=== PATIENT | male | born 1955 | race Caucasian/White ===

== ENCOUNTER 2016-09-30 14:38 | Emergency (ER) | payer BC ==
[2016-09-30 14:50] VITALS: BP 159/74
--- NOTE | 2016-09-30 16:16 | ERNOTE ---
ENT HPI Date of Service: 09/30/16 Presenting Symptoms: dental pain Time Seen by Provider: 09/30/16 16:06 Source: patient, RN notes reviewed Exam Limitations: no limitations - Immun/Allergies/Home Medications Immunizations: IMMUNIZATION HX Immunizations Up to Date No History of Influenza Vaccine No Hx Pneumococcal Vaccination No Allergies/Adverse Reactions: Allergies Allergy/AdvReac Type Severity Reaction Status Date / Time No Known Allergies Allergy Unverified 09/30/16 14:46 Home Medications: HOME MEDICATIONS Penicillin V Potassium [Pen-Vee K] 500 mg PO Q8H #30 tab 09/30/16 [Last Taken Unknown] - History of Present Illness Narrative: 61 y/o male ambulatory to the ED for dental pain that began about a week ago. He noticed over the weekend that his face was starting to swell. His dentist instructed him to come here to get an antibiotic. ENT Location: Present: dental Prearrival Treatment: Present: over the counter meds Associated Symptoms - ENT: Reports: facial pain/swelling, tooth pain, jaw swelling. Denies: fever, malaise, poor fluid intake, poor solid intake, cough, sore throat, nasal congestion/drainage, change in hearing, ear drainage, headache Prior Treament: Reports: similar symptoms before. Denies: recently seen Review of Systems - Review of Systems Constitutional: Present: See HPI EYE: Present: no symptoms reported ENT: Present: See HPI Respiratory: Present: See HPI Cardiology: Present: no symptoms reported Gastrointestinal/Abdominal: Absent: nausea, vomiting Genitourinary: Present: no symptoms reported Musculoskeletal: Absent: muscle pain, neck pain Skin: Absent: rash, lesions, change in color Neurological: Present: See HPI Endocrine: Present: no symptoms reported Hematologic/Lymphatic: Present: no symptoms reported Psych: Present: no symptoms reported - Patient's Past Medical History Patient History - Medical: No pertinent hx Patient History - Cardiac/Respiratory: No pertinent hx Patient History - Cancer: No Hx of Cancer Patient History - Surgical Procedures: No surgical history Patient History - Other: None - Social History Living Situations: home Abuse History: No History of abuse Psych History: No pertinent hx Smoking Status: Current every day smoker Cigarettes Packs Per Day: 1 Have you smoked in the past 12 months: Yes Alcohol Use: occasionally - Immunizations Immunizations Up to Date: No Hx Pneumococcal Vaccination: No History of Influenza Vaccine: No Physical Exam - Physical Exam General Appearance: Present: wd/wn, alert, no apparent distress Eye Exam: Normal inspection: bilateral Ears, Nose, Throat: Present: normal except - - erythema/edema to gums surrounding left upper molar with mild facial swelling Neck: Present: normal inspection, supple, lymphadenopathy (L). Absent: lymphadenopathy (R) Respiratory: Present: no respiratory distress, normal breath sounds, no accessory muscle use, lungs clear Cardiovascular/Chest: Present: regular rate, rhythm, no murmur Neurological Exam: Present: alert, oriented, normal mood/affect Skin Exam: Present: normal color, warm/dry ED Progress - Vital Signs Patient's Vital Signs:: I have reviewed the patient's vital signs. Vital Signs: Vital Signs 09/30/16 14:46 Temperature 37.3 C Pulse Rate 81 Respiratory 14 Rate Blood Pressure 159/74 O2 Sat by Pulse 100 Oximetry - Progress/Reassessment Chief Complaint: Dental Problem Progress:: Unchanged Departure Clinical Impression: Dental abscess - Departure Disposition: Home Follow Up Needed Condition: Stable Instructions: Dental Abscess, [id number] Additional Instructions: See your dentist as scheduled Referrals: Salvatore Yap MD [Primary Care Provider] - Prescriptions: Penicillin V Potassium [Pen-Vee K] 500 mg PO Q8H #30 tab
== END 2016-09-30 16:19 | disposition home or self-care (01) ==
LOC: ER 14:38
DX: K04.7 Periapical abscess without sinus (principal); Z72.0 Tobacco use

== ENCOUNTER 2020-07-25 12:25 | Inpatient (IN) ==
[~2020-07-25 12:25] MED LIST: TRANEXAMIC ACID 1,000 MG in NORMAL SALINE 100 ML IV PRN; ceFAZolin SODIUM 1 GM VIAL IV PRN
[2020-07-25] MEDS ORDERED: MIDAZOLAM HCL/PF 5 MG/ML VIAL ONE (14:03)
[2020-07-25] MEDS ORDERED: PROPOFOL VIAL IV ONE (14:03)
[2020-07-25] MEDS ORDERED: LIDOCAINE HCL 20 ML VIAL ONE (14:03)
[2020-07-25] MEDS: RINGER'S SOLUTION,LACTATED 1,000 ML IV PRN ×2 (14:21→18:12)
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
[2020-07-25] MEDS ORDERED: BUPIVACAINE HCL 50 ML VIAL IJ ONE ×2 (15:03→15:45)
[2020-07-25] MEDS ORDERED: ceFAZolin SODIUM 1 GM VIAL ONE (15:04)
[2020-07-25] MEDS ORDERED: ZOLPIDEM TARTRATE 5 MG TABLET PO PRN (16:50)
[2020-07-25] MEDS ORDERED: ONDANSETRON HCL/PF 2 MG/ML VIAL IV PRN (16:50)
[2020-07-25] MEDS ORDERED: diphenhydrAMINE HCL 50 MG/ML VIAL IV PRN (16:50)
[2020-07-25] MEDS ORDERED: MAGNESIUM HYDROXIDE 30 ML UDC PO PRN (16:50)
[2020-07-25] MEDS ORDERED: MAG HYDROX/ALUMINUM HYD/SIMETH 30 ML UDC PO PRN (16:50)
--- NOTE | 2020-07-25 16:57 | ANES ---
Post Anesthesia Discharge - Transfer of Care Transfer of Care handoff given to nurse: Yes - Discharge from PACU Discharge from PACU when meets criteria: Yes - Awake in PACU.
--- NOTE | 2020-07-25 17:01 | OR ---
Operative Report - Dictated Report Narrative: Date: 07/25/2020 Surgeon: Alo Gore M.D. Tank Calibrator: Brent Sen PA-C (provided an essential set of skilled, educated hands that assisted with transfer, positioning, prepping, draping, manipulation, retraction, irrigation, placement of implants, closure of wounds, and application of splints and dressing all of which cannot be performed by the available surgical crew) Anesthesia: General plus local nerve injections Preoperative diagnosis: Chronic wound right lower extremity with osteomyelitis status post paralysis Postoperative diagnosis: Chronic wound right lower extremity with osteomyelitis status post paralysis Procedure: Right below the knee potation Estimated blood loss: 50 mL Tourniquet time: 26 minutes at 250 millimeters mercury Retained implants: None Drains: Medium Hemovac double loaded Specimens: Leg pathology Complications: None Indications: Mr. Puri is a 65-year-old gentleman who had an injury resulting in paralysis. He was placed in a rigid lower extremity brace which resulted in pressure over his leg and he developed a secondary wound that went on to osteomyelitis and did not heal with wound care. It was not amendable to soft tissue coverage and thus the option for amputation was discussed. He elected to proceed. Risks and recovery were discussed in the clinic including the risk of wound complications, persistent pain, blood loss, nerve, tendon, blood vessel injury and pain, need for additional procedures, persistent pain, and . Procedure: After a timeout, antibiotics consisting of Ancef was administered. A beanbag was utilized in order bump the operative leg and a well-padded tourniquet was applied to the operative thigh. The leg was then prepped and draped in a standard sterile fashion. There was a noted draining malodorous purulent longitudinal wound involving the distal one half of the fibula as well as the foot and heel. After inflating the tourniquet to 2 and 50 mmHg, a standard posterior flap below the knee potation was performed with a planned 10 cm below the tibial tubercle tibial cut. Sharp dissection was carried throughout the muscle and the posterior flap and the bone was transected approximately 10 cm distal to the tibial tubercle beveled and rasped to smooth edges. The fibula was cut proximal to this on an oblique manner. All nerves and vessels were identified and the vessels were tied off separately and the nerves were injected with 0.5% Marcaine without epinephrine and transected in order to resect into the muscle. A posterior and lateral flap were fashioned. Tourniquet was deflated and hemostasis was obtained ensuring that we had adequately stopped active bleeding. A drain was placed deep and superficial double loaded. The deep flap was myodesed to the distal tibia and the fascia was closed to the anterior tibial periosteum and subcutaneous tissues. This resulted in a well- padded stump. The subcutaneous tissue was closed with interrupted 3-0 Vicryl, the skin with 3-0 nylon and eliceo. Xeroform 4 x 4s, fluffs Norman, Sof-Rol, and an Lars wrap was applied. All sponge, needle, instrument counts were correct prior to closing wounds. Patient was then awoken and transferred to postanesthesia care in stable condition. All sponge, sharp, and instrument counts were correct prior to closing the wounds.
--- NOTE | 2020-07-25 17:14 | ANES ---
Post Anesthesia Assessment - Vital Signs Vitals: Last Vital Signs Temp 36.4 C 07/25/20 17:10 Pulse 80 07/25/20 17:10 Resp 12 07/25/20 17:10 BP 114/70 07/25/20 17:10 Pulse Ox 100 07/25/20 17:10 Airway Patency: Normal - Mental Status Level Of Consciousness: Awake, Alert, Appropriate - Pain Level Pain Score: 7 - Represents chronic pain, shoulders. - N/V Assessment Nausea/Vomiting Presence: None Dehydration:: No
[2020-07-25] MEDS: oxyCODONE HCL/ACETAMINOPHEN 1 TAB TABLET PO PRN ×2 (17:30→21:47)
[2020-07-25] MEDS: ceFAZolin SODIUM 1 GM in DEXTROSE 5 % IN WATER 100 ML IV SCH ×2 (19:13)
[2020-07-25] MEDS: ACETAMINOPHEN 500 MG TABLET PO PRN (21:48)
[2020-07-26] MEDS: SENNOSIDES/DOCUSATE SODIUM 1 TAB TABLET PO SCH ×2 (01:04→20:47)
[2020-07-26] MEDS: ceFAZolin SODIUM 1 GM in DEXTROSE 5 % IN WATER 100 ML IV SCH ×4 (01:07→08:18)
[2020-07-26] MEDS: oxyCODONE HCL/ACETAMINOPHEN 1 TAB TABLET PO PRN (04:33)
[2020-07-26] MEDS: ACETAMINOPHEN 500 MG TABLET PO PRN (04:34)
[2020-07-26] MEDS: MORPHINE SULFATE 2 MG/ML DISP.SYRIN IV PRN ×2 (05:58→06:39)
[2020-07-26 06:21] LABS: Hematocrit 29.1 % (42.0-52.0); Hemoglobin 9.4 gm/dL (13.5-18.0); Mean Corpuscular Hgb Conc 32.3 g/dl (32-36); Platelet Count 221 K/mm3 (150-450); Red Blood Count 3.13 M/mm3 (4.7-6.0); Red Cell Distribution Width 13.2 % (11.5-14.0); White Blood Count 7.1 K/mm3 (4.0-10.5)
[2020-07-26 06:29] LABS: Anion Gap 8.7 mmol/L (6.8-13.8); BUN/Creatinine Ratio 20.8 (9.0-21.6); Carbon Dioxide 30.5 mmol/L (24-32.6); Estimated Creat Clear 114.2; Potassium 4.2 mmol/L (3.4-4.6)
[2020-07-26] MEDS ORDERED: oxyCODONE HCL/ACETAMINOPHEN 1 TAB TABLET PO PRN (06:46)
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
[2020-07-26] MEDS: PANTOPRAZOLE SODIUM 40 MG TABLET.EC PO SCH (08:20)
[2020-07-26] MEDS: GABAPENTIN 100 MG CAPSULE PO SCH ×3 (08:20→18:58)
[2020-07-26] MEDS: BACLOFEN 10 MG TABLET PO SCH ×3 (08:20→18:58)
[2020-07-26] MEDS: FERROUS SULFATE 325 MG TABLET PO SCH ×2 (08:21→17:26)
[2020-07-26] MEDS: FOLIC ACID 1 MG TABLET PO SCH (08:21)
[2020-07-26] MEDS: CALCIUM CARBONATE 500 MG TAB.CHEW PO SCH (08:21)
[2020-07-26] MEDS: MULTIVITAMINS 1 CAP CAPSULE PO SCH (08:21)
[2020-07-26] MEDS: CYANOCOBALAMIN 1,000 MCG TABLET PO SCH (08:22)
[2020-07-26] MEDS: THIAMINE HCL 100 MG TABLET PO SCH (08:22)
[2020-07-26] MEDS: CHOLECALCIFEROL 5,000 UNIT TABLET PO SCH (08:22)
[2020-07-26] MEDS: traMADol HCL 50 MG TABLET PO SCH ×3 (08:30→19:01)
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
[2020-07-26] MEDS: MICONAZOLE NITRATE 150 APPL TUBE TP SCH (14:55)
[2020-07-26] MEDS: COLLAGENASE CLOSTRIDIUM HIST. 30 APPL TUBE TP SCH (14:55)
--- NOTE | 2020-07-26 17:44 | PN ---
Subjective - Date and Time Seen Date: 07/26/20 Time: 07:45 Subjective Narrative: Subjective: Reports no appreciable pain in his right leg. He was having some back and sacral pain from positioning. He denies any significant complaints with regards to his right leg Physical exam: Alert and oriented to person, place and time Right lower extremity: Dressings intact to the right leg, drains in place, minimal pain with knee range of motion Assessment: Postop day 1 status post right below the knee amputation. Plan: He will continue with his compressive dressings. Avoid pressure on the end of his wounds. We will assess for removal of drains. A stump plant changer was ordered and a PRAFO boot would be recommended for his left leg to avoid any additional pressure on his heel. Continue his 24 hours worth of antibiotics. Objective - Vitals Vitals: Last Vital Signs Temp 37.1 C 07/26/20 14:10 Pulse 97 07/26/20 14:10 Resp 16 07/26/20 14:10 BP 91/36 07/26/20 14:10 Pulse Ox 99 07/26/20 14:10 - Abnormal Lab Findings Abnormal Lab Findings: Abnormal Lab Results 07/26/20 07/26/20 Range/Units 06:10 06:10 RBC 3.13 L (4.7-6.0) M/mm3 Hgb 9.4 L (13.5-18.0) gm/dL Hct 29.1 L (42.0-52.0) % Random Glucose 112 H (70-110) mg/dL Assessment/Plan - Problems/Diagnosis (1) S/P BKA (below knee amputation) Problem: Acute Qualifiers: Laterality: right Qualified Code(s): Z89.511 - Acquired absence of right leg below knee
[2020-07-27] MEDS: GABAPENTIN 100 MG CAPSULE PO SCH ×4 (00:53→18:55)
[2020-07-27] MEDS: traMADol HCL 50 MG TABLET PO SCH ×4 (00:53→18:55)
[2020-07-27] MEDS: BACLOFEN 10 MG TABLET PO SCH ×4 (00:54→18:55)
[2020-07-27] MEDS ORDERED: ACETAMINOPHEN 325 MG TABLET PO PRN (01:28)
[2020-07-27 06:15] LABS: Hematocrit 28.5 % (42.0-52.0); Mean Cell Volume 94.4 fl (78-100); Mean Corpuscular Hemoglobin 29.8 pg (27-31); Mean Corpuscular Hgb Conc 31.6 g/dl (32-36); Mean Platelet Volume 9.5 fl (8-11.3); Platelet Count 219 K/mm3 (150-450); Red Blood Count 3.02 M/mm3 (4.7-6.0); Red Cell Distribution Width 13.4 % (11.5-14.0); White Blood Count 7.5 K/mm3 (4.0-10.5)
[2020-07-27 06:32] LABS: Anion Gap 8.8 mmol/L (6.8-13.8); BUN/Creatinine Ratio 22.4 (9.0-21.6); Calcium * 8.8 mg/dL (7.9-10.9); Estimated Creat Clear 151.6; Potassium 3.8 mmol/L (3.4-4.6)
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
[2020-07-27] MEDS ORDERED: NORMAL SALINE 1,000 ML IV ONE (06:48)
[2020-07-27] MEDS: PANTOPRAZOLE SODIUM 40 MG TABLET.EC PO SCH (07:08)
[2020-07-27] MEDS: FERROUS SULFATE 325 MG TABLET PO SCH ×2 (08:55→16:06)
[2020-07-27] MEDS: MICONAZOLE NITRATE 150 APPL TUBE TP SCH (08:56)
[2020-07-27] MEDS: FOLIC ACID 1 MG TABLET PO SCH (08:56)
[2020-07-27] MEDS: MULTIVITAMINS 1 CAP CAPSULE PO SCH (08:56)
[2020-07-27] MEDS: CHOLECALCIFEROL 5,000 UNIT TABLET PO SCH (08:57)
[2020-07-27] MEDS: THIAMINE HCL 100 MG TABLET PO SCH (08:57)
[2020-07-27] MEDS: CALCIUM CARBONATE 500 MG TAB.CHEW PO SCH (08:57)
[2020-07-27] MEDS ORDERED: COLLAGENASE CLOSTRIDIUM HIST. 30 APPL TUBE TP SCH (09:00)
[2020-07-27] MEDS: CYANOCOBALAMIN 1,000 MCG TABLET PO SCH (09:01)
[2020-07-27] MEDS: COLLAGENASE CLOSTRIDIUM HIST. 30 APPL TUBE TP SCH (09:01)
--- NOTE | 2020-07-27 15:29 | PN ---
Subjective - Date and Time Seen Date: 07/27/20 Time: 15:27 Subjective Narrative: Subjective: Reports no appreciable pain in his right leg. He denies any significant complaints with regards to his right leg Physical exam: Alert and oriented to person, place and time Right lower extremity: Dressings intact, removed, incision without any acute signs of complication, gauze and stump forest fire control officer applied Assessment: Postop day 2 status post right below the knee amputation. Plan: He will continue with his compressive dressings. Avoid pressure on the end of his wounds. Drains removed today. A stump forest fire control officer was placed and a PRAFO boot would be recommended for his left leg to avoid any additional pressure on his heel. Okay for transfer to nursing facility when medically stable and follow-up in approximately 10 to 14 days with orthopedics. Keep the wound dry. Utilize the compression stocking. Change dressings with dry gauze and stocking as needed and if no drainage this can be kept in place for multiple days. Objective - Vitals Vitals: Last Vital Signs Temp 36.8 C 07/27/20 14:45 Pulse 94 07/27/20 14:45 Resp 16 07/27/20 14:45 BP 104/54 07/27/20 14:45 Pulse Ox 100 07/27/20 14:45 - Abnormal Lab Findings Abnormal Lab Findings: Abnormal Lab Results 07/27/20 07/27/20 Range/Units 06:02 06:02 RBC 3.02 L (4.7-6.0) M/mm3 Hgb 9.0 L (13.5-18.0) gm/dL Hct 28.5 L (42.0-52.0) % MCHC 31.6 L (32-36) g/dl Est GFR (Non-Af Amer) 150 H D (60-130) mL/min BUN/Creatinine Ratio 22.4 H (9.0-21.6) Assessment/Plan - Problems/Diagnosis (1) S/P BKA (below knee amputation) Problem: Acute Qualifiers: Laterality: right Qualified Code(s): Z89.511 - Acquired absence of right leg below knee
[2020-07-27] MEDS: SENNOSIDES/DOCUSATE SODIUM 1 TAB TABLET PO SCH (20:16)
[2020-07-28] MEDS: GABAPENTIN 100 MG CAPSULE PO SCH ×4 (01:02→18:39)
[2020-07-28] MEDS: traMADol HCL 50 MG TABLET PO SCH ×4 (01:02→18:41)
[2020-07-28] MEDS: BACLOFEN 10 MG TABLET PO SCH ×4 (01:03→18:39)
[2020-07-28 06:26] LABS: Hematocrit 28.1 % (42.0-52.0); Mean Cell Volume 94.9 fl (78-100); Mean Corpuscular Hemoglobin 30.4 pg (27-31); Mean Platelet Volume 8.8 fl (8-11.3); Platelet Count 203 K/mm3 (150-450); Red Blood Count 2.96 M/mm3 (4.7-6.0); Red Cell Distribution Width 13.3 % (11.5-14.0); White Blood Count 6.3 K/mm3 (4.0-10.5)
[2020-07-28 06:45] LABS: Anion Gap 7.5 mmol/L (6.8-13.8); BUN/Creatinine Ratio 16.7 (9.0-21.6); Carbon Dioxide 32.4 mmol/L (24-32.6); Estimated Creat Clear 183.2; Potassium 3.9 mmol/L (3.4-4.6)
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
[2020-07-28] MEDS: PANTOPRAZOLE SODIUM 40 MG TABLET.EC PO SCH (07:48)
[2020-07-28] MEDS: CHOLECALCIFEROL 5,000 UNIT TABLET PO SCH (09:07)
[2020-07-28] MEDS: FOLIC ACID 1 MG TABLET PO SCH (09:07)
[2020-07-28] MEDS: THIAMINE HCL 100 MG TABLET PO SCH (09:08)
[2020-07-28] MEDS: CYANOCOBALAMIN 1,000 MCG TABLET PO SCH (09:08)
[2020-07-28] MEDS: FERROUS SULFATE 325 MG TABLET PO SCH ×2 (09:08→17:26)
[2020-07-28] MEDS: CALCIUM CARBONATE 500 MG TAB.CHEW PO SCH (09:08)
[2020-07-28] MEDS: MULTIVITAMINS 1 CAP CAPSULE PO SCH (09:08)
[2020-07-28] MEDS: MICONAZOLE NITRATE 150 APPL TUBE TP SCH (12:20)
[2020-07-28] MEDS: MIDODRINE HCL 2.5 MG TABLET PO SCH (12:21)
[2020-07-28] MEDS ORDERED: GLYCERIN/PROPYLENE GLYCOL 150 DROP BTL EACHEYE PRN (17:08)
[2020-07-28] MEDS: COLLAGENASE CLOSTRIDIUM HIST. 30 APPL TUBE TP SCH (17:47)
[2020-07-29] MEDS: GABAPENTIN 100 MG CAPSULE PO SCH ×4 (00:36→19:53)
[2020-07-29] MEDS: MIDODRINE HCL 2.5 MG TABLET PO SCH ×2 (00:36→12:45)
[2020-07-29] MEDS: traMADol HCL 50 MG TABLET PO SCH ×4 (00:36→19:53)
[2020-07-29] MEDS: BACLOFEN 10 MG TABLET PO SCH ×4 (00:37→19:54)
[2020-07-29] MEDS: PANTOPRAZOLE SODIUM 40 MG TABLET.EC PO SCH (07:00)
[2020-07-29] MEDS: THIAMINE HCL 100 MG TABLET PO SCH (09:57)
[2020-07-29] MEDS: CHOLECALCIFEROL 5,000 UNIT TABLET PO SCH (09:57)
[2020-07-29] MEDS: FOLIC ACID 1 MG TABLET PO SCH (09:57)
[2020-07-29] MEDS: CALCIUM CARBONATE 500 MG TAB.CHEW PO SCH (09:57)
[2020-07-29] MEDS: FERROUS SULFATE 325 MG TABLET PO SCH ×2 (09:57→17:34)
[2020-07-29] MEDS: MULTIVITAMINS 1 CAP CAPSULE PO SCH (09:57)
[2020-07-29] MEDS: MICONAZOLE NITRATE 150 APPL TUBE TP SCH (09:57)
[2020-07-29] MEDS: CYANOCOBALAMIN 1,000 MCG TABLET PO SCH (09:57)
[2020-07-29] MEDS: COLLAGENASE CLOSTRIDIUM HIST. 30 APPL TUBE TP SCH (09:58)
--- NOTE | 2020-07-29 10:50 | PN ---
Subjective - Date and Time Seen Date: 07/29/20 - n Time: 10:43 Subjective Narrative: My pain is well controlled for now I am comfortable. Objective Objective Narrative: 65-year-old male admitted for osteomyelitis of his right lower extremities status post day #4 after undergoing BKA of his right lower extremity was evaluated at bedside was found to be afebrile no acute distress. The patient is a quadriplegic due to an injury that occurred over a year ago and since then he has had numerous episodes of infection due to ulcers of his lower extremities. Since having the surgery to amputate his right lower extremity the patient reports that with the proper modification of his pain meds his pain is currently well controlled. PT worked with him this morning and transferred him from bed to chair and then back to bed and he tolerated the session without any major issues. He had a bout of hypotension yesterday and was treated with IV fluids, since then his BP has stabilized and nursing staff reported an unev entful night. So I will not make any changes to his treatment and will evaluate him in the morning. - Review of Systems Generalized/Overall Review: Reports: No Symptoms Reported EENTM: Reports: No Symptoms Reported Respiratory: Reports: No Symptoms Reported Cardiac: Reports: No Symptoms Reported Abdominal: Reports: No Symptoms Reported Genitourinary Symptoms: Reports: No Symptoms Reported Musculoskeletal Complaints: Reports: Joint Pain Neurological: Reports: No Symptoms Reported Skin: Reports: No Symptoms Reported Endocrine: Reports: No Symptoms Reported - Vitals Vitals: Last Vital Signs Temp 37.0 C 07/29/20 10:30 Pulse 78 07/29/20 10:30 Resp 14 07/29/20 10:30 BP 137/74 07/29/20 10:30 Pulse Ox 100 07/29/20 10:30 - Exam Constitutional: Present: Alert, Oriented x3, Cooperative, No distress ENT Exam: Present: normal ENT inspection, hearing grossly normal Neck: Present: non-tender Respiratory: Present: chest non-tender, lungs clear, normal breath sounds, no respiratory distress, no accessory muscle use Cardiovascular/Chest: Present: normal peripheral pulses, regular rate, rhythm, no chest tenderness, no edema, no gallop, no JVD, no murmur, no rub Abdomen: Present: Normal bowel sounds, soft, nontender, nondistended, no rebound tenderness, no hepatospenomegaly, no masses /Rectal: Present: Exam deferred Extremity: Present: other - Right below the knee amputation covered with clean dry bandages and dressings, left foot is in a boot to avoid pressure ulcers. Skin Exam: Present: normal color, warm/dry, no cyanosis Lymphatic: Present: no adenopathy Neurologic: Present: examiner of currency II-XII nml as tested, normal cerebellar test, no motor/sensory deficits, alert, normal mood/affect, oriented x 3 Appearance: Present: appropriate appearance, appropriate insight, neat, no memory impairment Eye contact: Present: cooperative, good eye contact, normal speech Thoughts: Present: normal thought pattern, no apparent hallucination Assessment/Plan Plan Narrative: No changes to current treatment, we will reevaluate in the morning. - Problems/Diagnosis (1) S/P BKA (below knee amputation) Problem: Acute Qualifiers: Laterality: right Qualified Code(s): Z89.511 - Acquired absence of right leg below knee (2) Bilateral shoulder pain Problem: Chronic Qualifiers: Chronicity: chronic Qualified Code(s): M25.511 - Pain in right shoulder; M25.512 - Pain in left shoulder; G89.29 - Other chronic pain (3) Chronic intractable pain Problem: Chronic (4) Chronic neck pain Problem: Chronic (5) Chronically on opiate therapy Problem: Chronic (6) Quadriparesis Problem: Chronic (7) Pressure sore Problem: Chronic Qualifiers: Pressure injury location: other site Pressure injury stage: stage 2 Qualified Code(s): L89.892 - Pressure ulcer of other site, stage 2 (8) Malnutrition Problem: Chronic Qualifiers: Malnutrition type: protein-calorie malnutrition Protein-calorie mal nutrition severity: moderate Qualified Code(s): E44.0 - Moderate protein- calorie malnutrition
[2020-07-30] MEDS: MIDODRINE HCL 2.5 MG TABLET PO SCH ×2 (00:16→12:01)
[2020-07-30] MEDS: GABAPENTIN 100 MG CAPSULE PO SCH ×4 (00:18→19:25)
[2020-07-30] MEDS: BACLOFEN 10 MG TABLET PO SCH ×4 (00:19→19:25)
[2020-07-30] MEDS: traMADol HCL 50 MG TABLET PO SCH ×4 (00:21→19:25)
[2020-07-30] MEDS: PANTOPRAZOLE SODIUM 40 MG TABLET.EC PO SCH (06:52)
[2020-07-30] MEDS: FOLIC ACID 1 MG TABLET PO SCH (08:46)
[2020-07-30] MEDS: MULTIVITAMINS 1 CAP CAPSULE PO SCH (08:47)
[2020-07-30] MEDS: THIAMINE HCL 100 MG TABLET PO SCH (08:47)
[2020-07-30] MEDS: CYANOCOBALAMIN 1,000 MCG TABLET PO SCH (08:47)
[2020-07-30] MEDS: CALCIUM CARBONATE 500 MG TAB.CHEW PO SCH (08:47)
[2020-07-30] MEDS: FERROUS SULFATE 325 MG TABLET PO SCH ×2 (08:47→17:23)
[2020-07-30] MEDS: CHOLECALCIFEROL 5,000 UNIT TABLET PO SCH (08:47)
[2020-07-30] MEDS: COLLAGENASE CLOSTRIDIUM HIST. 30 APPL TUBE TP SCH (08:50)
[2020-07-30] MEDS: MICONAZOLE NITRATE 150 APPL TUBE TP SCH (08:51)
--- NOTE | 2020-07-30 10:57 | PN ---
Subjective - Date and Time Seen Date: 07/30/20 Time: 10:52 Subjective Narrative: My pain is well controlled for now I am comfortable. Objective Objective Narrative: 65-year-old male admitted for osteomyelitis of his right lower extremities status post day #5 after undergoing BKA of his right lower extremity was evaluated at bedside was found to be afebrile no acute distress. The patient appeared to be comfortable and in his usual state of health this morning. He denied any pain or discomfort at the moment so did not require any changes to his pain medications. He will undergo dressing changes for his heel ulcer and pressure ulcer of the left lower extremity. He surgical stump is wrapped in clean dry surgical bandages did not show any signs of bleeding or infection. We will continue to monitor the patient closely. - Review of Systems Generalized/Overall Review: Reports: No Symptoms Reported EENTM: Reports: No Symptoms Reported Respiratory: Reports: No Symptoms Reported Cardiac: Reports: No Symptoms Reported Abdominal: Reports: No Symptoms Reported Genitourinary Symptoms: Reports: No Symptoms Reported Musculoskeletal Complaints: Reports: Other Neurological: Reports: Pre-existing Deficit Skin: Reports: No Symptoms Reported Endocrine: Reports: No Symptoms Reported - Vitals Vitals: Last Vital Signs Temp 37.3 C 07/30/20 07:14 Pulse 76 07/30/20 07:14 Resp 11 L 07/30/20 07:14 BP 105/59 07/30/20 07:14 Pulse Ox 99 07/30/20 07:14 - Exam Constitutional: Present: Alert, Oriented x3, Cooperative, Well developed, No distress ENT Exam: Present: normal ENT inspection, hearing grossly normal Neck: Present: non-tender, full range of motion, supple, normal inspection, trachea midline Breasts: Present: Exam deferred, Nontender Respiratory: Present: chest non-tender, lungs clear, normal breath sounds, no respiratory distress, no accessory muscle use Cardiovascular/Chest: Present: normal peripheral pulses, regular rate, rhythm, no chest tenderness, no edema, no gallop, no JVD, no murmur, no rub Abdomen: Present: Normal bowel sounds, soft, nontender, nondistended, no rebound tenderness, no hepatospenomegaly, no masses /Rectal: Present: Exam deferred Extremity: Present: no pedal edema, no calf tenderness, pelvis stable Skin Exam: Present: normal color, warm/dry, no cyanosis, other - Necrotic pressure ulcer on dorsum of left foot, and pressure ulcer on left heel. Lymphatic: Present: no adenopathy Neurologic: Present: alert, normal mood/affect, oriented x 3, other - Patient is quadriplegic Appearance: Present: appropriate appearance, appropriate insight, neat, no memory impairment Eye contact: Present: cooperative, good eye contact, normal speech Thoughts: Present: normal thought pattern, no apparent hallucination Assessment/Plan Plan Narrative: We will continue the current management and follow-up with the nurse after wound care is performed. - Problems/Diagnosis (1) S/P BKA (below knee amputation) Problem: Acute Qualifiers: Laterality: right Qualified Code(s): Z89.511 - Acquired absence of right leg below knee (2) Bilateral shoulder pain Problem: Chronic Qualifiers: Chronicity: chronic Qualified Code(s): M25.511 - Pain in right shoulder; M25.512 - Pain in left shoulder; G89.29 - Other chronic pain (3) Chronic intractable pain Problem: Chronic (4) Chronic neck pain Problem: Chronic (5) Chronically on opiate therapy Problem: Chronic (6) Quadriparesis Problem: Chronic (7) Pressure sore Problem: Chronic Qualifiers: Pressure injury location: other site Pressure injury stage: stage 2 Qualified Code(s): L89.892 - Pressure ulcer of other site, stage 2 (8) Malnutrition Problem: Chronic Qualifiers: Malnutrition type: protein-calorie malnutrition Protein-calorie malnutrition severity: moderate Qualified Code(s): E44.0 - Moderate protein- calorie malnutrition
[2020-07-31] MEDS: traMADol HCL 50 MG TABLET PO SCH ×2 (00:47→07:00)
[2020-07-31] MEDS: MIDODRINE HCL 2.5 MG TABLET PO SCH (00:47)
[2020-07-31] MEDS: BACLOFEN 10 MG TABLET PO SCH ×2 (00:48→07:00)
[2020-07-31] MEDS: GABAPENTIN 100 MG CAPSULE PO SCH ×2 (00:48→07:00)
[2020-07-31] MEDS: PANTOPRAZOLE SODIUM 40 MG TABLET.EC PO SCH (07:00)
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
[2020-07-31] MEDS: MULTIVITAMINS 1 CAP CAPSULE PO SCH (09:44)
[2020-07-31] MEDS: CYANOCOBALAMIN 1,000 MCG TABLET PO SCH (09:44)
[2020-07-31] MEDS: CHOLECALCIFEROL 5,000 UNIT TABLET PO SCH (09:44)
[2020-07-31] MEDS: FERROUS SULFATE 325 MG TABLET PO SCH (09:44)
[2020-07-31] MEDS: FOLIC ACID 1 MG TABLET PO SCH (09:45)
[2020-07-31] MEDS: MICONAZOLE NITRATE 150 APPL TUBE TP SCH (09:45)
[2020-07-31] MEDS: COLLAGENASE CLOSTRIDIUM HIST. 30 APPL TUBE TP SCH (09:45)
[2020-07-31] MEDS: THIAMINE HCL 100 MG TABLET PO SCH (09:45)
[2020-07-31] MEDS: CALCIUM CARBONATE 500 MG TAB.CHEW PO SCH (09:45)
--- NOTE | 2020-07-31 10:19 | PN ---
Subjective - Date and Time Seen Date: 07/31/20 Time: 10:18 Subjective Narrative: Subjective: Reports no appreciable pain in his right leg. He denies any significant complaints with regards to his right leg Physical exam: Alert and oriented to person, place and time Right lower extremity: Dressings intact, removed, incision without any acute signs of complication, gauze and stump quality control coordinator applied, minimal serous drainage Assessment: status post right below the knee amputation. Plan: He will continue with his compressive dressings. Avoid pressure on the end of his wounds. A stump quality control coordinator was placed and a PRAFO boot would be recommended for his left leg to avoid any additional pressure on his heel. Okay for transfer to nursing facility when medically stable and follow-up in approximately 10 to 14 days with orthopedics. Keep the wound dry. Utilize the compression stocking. Change dressings with dry gauze and stocking as needed and if no drainage this can be kept in place for multiple days. Objective - Vitals Vitals: Last Vital Signs Temp 36.7 C 07/31/20 06:52 Pulse 82 07/31/20 06:52 Resp 18 07/31/20 06:52 BP 103/59 07/31/20 06:52 Pulse Ox 98 07/31/20 06:52 Assessment/Plan - Problems/Diagnosis (1) S/P BKA (below knee amputation) Problem: Acute Qualifiers: Laterality: right Qualified Code(s): Z89.511 - Acquired absence of right leg below knee
[2020-07-31 10:41] VITALS: BP 126/64
--- NOTE | 2020-08-01 14:49 | PREOP NOTE ---
Preoperative Progress Note - Preoperative Changes Changes to Preop Condition?: No Changes - 07/25/20 This was done the day of surgery in the pre-op area but was lost/misplaced
== END 2020-07-31 10:40 | DRG 474 ==
LOC: MS 12:25
PROVIDERS: ADMIT Allergy & Immunology; ATTEND Allergy & Immunology
DX: L89.622 Pressure ulcer of left heel, stage 2; M86.661 Other chronic osteomyelitis, right tibia and fibula; L89.90 Pressure ulcer of unspecified site, unspecified stage; G82.50 Quadriplegia, unspecified; Z68.1 Body mass index [BMI] 19.9 or less, adult; I95.9 Hypotension, unspecified; L89.152 Pressure ulcer of sacral region, stage 2; R50.82 Postprocedural fever; G62.9 Polyneuropathy, unspecified; M25.512 Pain in left shoulder; R25.2 Cramp and spasm; W20.8XXS Other cause of strike by thrown, projected or falling object, sequela; E46 Unspecified protein-calorie malnutrition; Z79.891 Long term (current) use of opiate analgesic; D50.8 Other iron deficiency anemias; M21.371 Foot drop, right foot; M54.2 Cervicalgia; G89.29 Other chronic pain; M23.52 Chronic instability of knee, left knee; M25.511 Pain in right shoulder; L89.892 Pressure ulcer of other site, stage 2; S14.109S Unspecified injury at unspecified level of cervical spinal cord, sequela; M21.372 Foot drop, left foot